=== PATIENT | female | born 1965 | race Two or more races ===

== ENCOUNTER 2019-09-09 08:56 | Outpatient (RCR) | payer MEDICARE, BC | END 2019-09-21 | disposition home or self-care (01) | LOC: WCC 08:56 | DX: I70.221 Atherosclerosis of native arteries of extremities with rest pain, right leg (principal); L97.519 Non-pressure chronic ulcer of other part of right foot with unspecified severity; Z95.0 Presence of cardiac pacemaker; I13.11 Hypertensive heart and chronic kidney disease without heart failure, with stage 5 chronic kidney disease, or end stage renal disease; N18.6 End stage renal disease; M19.90 Unspecified osteoarthritis, unspecified site; Z88.8 Allergy status to other drugs, medicaments and biological substances | CPT/HCPCS: G0463 ==